=== PATIENT | female | born 1995 | race Caucasian/White ===

== ENCOUNTER 2018-01-26 16:31 | Emergency (ER) | payer OTHER ==
[2018-01-26 16:47] VITALS: BP 119/76
--- NOTE | 2018-01-26 17:12 | ED ---
Throat Pain/Nasal Congestion - HPI Summary HPI Summary: Patient is a 22-year-old female presenting to the with complaint of bilateral medial yellow tinge to her eyes. She first noticed a tinge approximately 1 week ago. Denies any pain, visual changes, medication changes, changes in diet or activity change. Denies any known allergies. She denies any pruritus to the eyes. She does not see an electrical design technologist and does not wear contacts or glasses. She first noticed it after a night of drinking and thought it could be jaundiced. - History of Current Complaint Chief Complaint: UCEye Time Seen by Provider: 01/26/18 16:48 Hx Obtained From: Patient Onset/Duration: Gradual Onset Severity: Moderate Associated Signs And Symptoms: Positive: Negative - Epiglottits Risk Factors Epiglottis Risk Factors: Negative - Allergies/Home Medications Allergies/Adverse Reactions: Allergies Allergy/AdvReac Type Severity Reaction Status Date / Time No Known Allergies Allergy Verified 01/26/18 16:47 Home Medications: Home Medications Fluticasone NASAL SPRAY 50MCG* [Flonase NASAL SPRAY 50MCG*] 1 spray INH DAILY [History Confirmed 01/26/18] Montelukast Sodium TAB* [Singulair 10 MG TAB*] 10 mg PO DAILY 01/26/18 [History Confirmed 01/26/18] PMH/Surg Hx/FS Hx/Imm Hx Previously Healthy: Yes - Immunization History Hx Pertussis Vaccination: No Immunizations Up to Date: Unable to Obtain/Confirm Infectious Disease History: No Infectious Disease History: Denies: Traveled Outside the [place] in Last 30 Days - Social History Alcohol Use: Occasionally Substance Use Type: Reports: None Smoking Status (MU): Never Smoked Tobacco Review of Systems Constitutional: Negative Negative: Fever, Chills, Fatigue Positive: Other - yellow tinge to the bilateral medial eyes without surrounding erythema or sclera icterus Cardiovascular: Negative Respiratory: Negative Skin: Negative Neurological: Negative Psychological: Normal All Other Systems Reviewed And Are Negative: Yes Physical Exam Triage Information Reviewed: Yes Vital Signs On Initial Exam: Initial Vitals Temp Pulse Resp BP Pulse Ox 99.1 F 75 16 119/76 99 01/26/18 16:41 01/26/18 16:41 01/26/18 16:41 01/26/18 16:41 01/26/18 16:41 Vital Signs Reviewed: Yes Appearance: Positive: Well-Appearing, Well-Nourished Skin: Positive: Warm, Skin Color Reflects Adequate Perfusion, Other - no evidence of jaundice Head/Face: Positive: Normal Head/Face Inspection Eyes: Positive: Other: - no conjunctival injection. No evidence of pinguecula or pterygium. Small amount of yellow tinge to the medial bilateral eyes. No evidence of jaundice to the face. Neck: Positive: Supple Respiratory/Lung Sounds: Positive: Breath Sounds Present Cardiovascular: Positive: Normal Musculoskeletal: Positive: Strength/ROM Intact Neurological: Positive: Sensory/Motor Intact, Speech Normal Psychiatric: Positive: Affect/Mood Appropriate Diagnostics - Vital Signs Vital Signs Temp Pulse Resp BP Pulse Ox 01/26/18 16:41 99.1 F 75 16 119/76 99 - Laboratory Lab Statement: Any lab studies that have been ordered have been reviewed, and results considered in the medical decision making process. EENT Course/Dx - Course Course Of Treatment: Patient is evaluated for bilateral medial yellow tinge to the eyes. She denies any allergies. The areas to the bilateral eyes have a slight yellow tinge, this is difficult to notice even during ophthalmic exam. It does not appear to be a pterygium or a pingueculum. She endorses a history of iron deficiency many years ago but has been on iron ever since. She first noticed this approximately 1 week ago. She denies any visual changes or disturbances. I've discussed if any symptoms worsen or change, she will follow- up with an electrical design technologist. However, at this time she has no other signs of illness. Continues to eat and drink okay. Denies any fevers, sweats, chills. Denies any history of gallbladder or liver issues. - Diagnoses Provider Diagnoses: Yellow eyes Discharge - Sign-Out/Discharge Documenting (check all that apply): Discharge/Admit/Transfer - Discharge Plan Condition: Stable Disposition: HOME Patient Education Materials: Pterygium (ED), Pinguecula (ED) Referrals: No Primary Care Phys,NOPCP [Primary Care Provider] - Additional Instructions: I have given you information on the symptoms we talked about Although this could be a new formation of either of these, it is more likely an acute abnormal breakdown of fats/calcium and iron and is generally self limiting. If you develop any visual changes or pain or worsening symptoms - please follow up with eye doctor - Billing Disposition and Condition Condition: STABLE Disposition: Home
== END 2018-01-26 17:12 | disposition home or self-care (01) ==
LOC: UCEAST 16:31
DX: H57.8 Other specified disorders of eye and adnexa (principal)
CPT/HCPCS: 99201; G0463

== ENCOUNTER 2018-02-03 13:36 | Emergency (ER) | payer OTHER ==
[2018-02-03 13:57] VITALS: BP 112/68
--- NOTE | 2018-02-03 15:03 | UC ---
UC General HPI - HPI Summary HPI Summary: 22 year old female with history of asthma here with lesions on her tongue. patient reports swelling at the back of her tongue. No white coating. Denies any fever, chills, recent URI, skin lesions or any other complaints. Denies recent abx or steroids use. - History of Current Complaint Chief Complaint: UCGeneralIllness Stated Complaint: MOUTH COMPLAINT Time Seen by Provider: 02/03/18 14:31 Hx Last Menstrual Period: iud Onset/Duration: Gradual Onset Timing: Constant Onset Severity: Mild Current Severity: Mild Pain Intensity: 1 - Allergy/Home Medications Allergies/Adverse Reactions: Allergies Allergy/AdvReac Type Severity Reaction Status Date / Time No Known Allergies Allergy Verified 02/03/18 13:57 PMH/Surg Hx/FS Hx/Imm Hx Respiratory History: Asthma - Surgical History Surgical History: None - Social History Alcohol Use: Occasionally Substance Use Type: None Smoking Status (MU): Never Smoked Tobacco Review of Systems Constitutional: Negative Skin: Negative Eyes: Negative ENT: Negative Respiratory: Negative Cardiovascular: Negative Gastrointestinal: Negative Genitourinary: Negative Motor: Negative Neurovascular: Negative Musculoskeletal: Negative Neurological: Negative Psychological: Negative All Other Systems Reviewed And Are Negative: No Physical Exam Triage Information Reviewed: Yes Appearance: Well-Appearing Vital Signs: Initial Vital Signs Temp 36.7 C 02/03/18 13:54 Pulse 98 02/03/18 13:54 Resp 18 02/03/18 13:54 BP 112/68 02/03/18 13:54 Pulse Ox 99 02/03/18 13:54 ENT Exam: Normal ENT: Positive: Pharynx normal, Other - small papules noted in the back of tongue ;. Negative: Pharyngeal erythema, Nasal congestion, Nasal drainage Neck exam: Normal Respiratory Exam: Normal Cardiovascular Exam: Normal Abdominal Exam: Normal Musculoskeletal Exam: Normal Neurological Exam: Normal - No mucosal ulcer Skin Exam: Normal Course/Dx - Differential Dx - Multi-Symptom Differential Diagnoses: Other Provider Diagnoses: Papular lesions of tongue. Will treat with NSAID and symptomatic treatment. Patient appears well, non-toxic and no concern for life threatening illness Discharge - Sign-Out/Discharge Documenting (check all that apply): Discharge/Admit/Transfer - Discharge Plan Condition: Good Disposition: HOME Prescriptions: Magic M W2 Marcus/Maal/Nyst/Lido* 5 ml SWISH SPIT QID #1 bottle Referrals: No Primary Care Phys,NOPCP [Primary Care Provider] - Jose Goodwin MD [Medical Doctor] - - Billing Disposition and Condition Condition: GOOD Disposition: Home
== END 2018-02-03 15:45 | disposition home or self-care (01) ==
LOC: UCEAST 13:36
DX: K13.79 Other lesions of oral mucosa (principal); J45.909 Unspecified asthma, uncomplicated
CPT/HCPCS: 99212; G0463